=== PATIENT | female | born 1935 | race Caucasian/White ===

== ENCOUNTER → 2020-02-15 10:52 | Outpatient (CLI) | payer OTHER, SELFPAY | PROVIDERS: PCP Family Medicine; Referring Provider Physical Medicine & Rehabilitation; Visit Provider Physical Medicine & Rehabilitation | DX: M21.372 Foot drop, left foot (principal) | CPT/HCPCS: 95886; 95910 ==

== ENCOUNTER → 2020-03-04 11:02 | Outpatient (CLI) | payer OTHER, SELFPAY ==
--- NOTE | 2020-03-04 11:05 | DI.MRI.S_ITS ---
PROCEDURE: MR LUMBAR SPINE WO CON INDICATIONS: Left footdrop TECHNIQUE: Noncontrast sagittal T1 spin echo and T2 fast echo, sagittal STIR, axial T1 and T2 fast spin echo through the lumbar spine. In cases with scoliosis, additional coronal T2 fast spin echo may be performed. COMPARISON: [facility], MR, MR LUMBAR SPINE WO CON, 02/11/2017, 7:42. FINDINGS: Image quality: Excellent. Alignment and Curvature: Mild dextrocurvature. Bone Marrow: Marrow is of normal overall signal. No acute vertebral body compression fractures. Old T10 and T11 and mild compressions. Old sacral insufficiency fracture. Spinal Cord: Conus medullaris terminates at the L1 level. Visualized cord demonstrates normal signal and size. Paraspinous Soft Tissues: No paravertebral masses. T12-L1: Mild facet hypertrophy. No canal stenosis or foraminal stenosis. L1-L2: Unchanged. Diffuse disc bulge. Facet and ligament hypertrophy. No canal stenosis. Mild to moderate bilateral foraminal stenosis. L2-L3: Unchanged. Diffuse disc bulge. Facet and ligament hypertrophy. Imsb-[id number] canal stenosis. Mild right foraminal narrowing and mild to moderate left foraminal narrowing. L3-L4: Diffuse disc bulge. Facet and ligament hypertrophy. Moderate canal stenosis. Mild bilateral foraminal stenosis. L4-L5: Disc bulge. Facet and ligament hypertrophy. Mild canal stenosis. Mild bilateral foraminal stenosis. L5-S1: No significant change. Mild relatively broad-based right paracentral disc protrusion abuts the bilateral S1 nerve roots in the bilateral lateral recesses. Bilateral facet hypertrophy. Mild canal stenosis. Mild bilateral foraminal stenosis. IMPRESSION: 1. Multilevel canal stenosis, mild to moderate at L2-L3, moderate at L3-L4, mild at L4-L5, and mild at L5-S1. Dictated by: Perez Santiago M.D. on 03/04/2020 at 12:48 Approved by: Perez Santiago M.D. on 03/04/2020 at 13:01
--- NOTE | 2020-03-04 11:05 | DI.RAD.S_ITS ---
PROCEDURE: XR LUMBAR SPINE MIN 4V INDICATIONS: LBP with foot drop TECHNIQUE: 5 views of the lumbar spine were acquired. COMPARISON: None. FINDINGS: Bones: 5 nonrib-bearing vertebrae are present. There is mildly dextroscoliotic 5 rmal bony alignment centered at L2-3. No vertebral body compression fractures. No suspicious bony lesions. Degenerative disc disease is moderate in severity over the upper 2/3 of the LS spine and moderately severe at L4-5 and L5-S1. 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 Soft tissues: Overlying bowel gas pattern is normal. No suspicious soft tissue calcifications. Oblique images: No pars defects. IMPRESSION: The degenerative changes along the lumbar sacral spine are most pronounced over the lower 2 levels and likely associated with significant spinal and foraminal stenosis at L4-5 and L5-S1. No trauma found. Dictated by: Cameron Muse M.D. on 03/04/2020 at 13:32 Approved by: Cameron Muse M.D. on 03/04/2020 at 13:33
== END ==
PROVIDERS: PCP Family Medicine; Referring Provider Physical Medicine & Rehabilitation; Visit Provider Physical Medicine & Rehabilitation
DX: M21.372 Foot drop, left foot (principal); M54.5 Low back pain; M48.061 Spinal stenosis, lumbar region without neurogenic claudication; M48.07 Spinal stenosis, lumbosacral region; M47.816 Spondylosis without myelopathy or radiculopathy, lumbar region; R47.1 Dysarthria and anarthria; Z96.642 Presence of left artificial hip joint
CPT/HCPCS: 72110; 72148; 99214